=== PATIENT | male | born 1975 | race Two or more races ===

== ENCOUNTER 2023-08-10 23:30 | Emergency (ER) | payer OTHER, SELFPAY ==
--- NOTE | ~2023-08-10 | XR_ITS ---
EXAMINATION: XR LUMBOSACRAL SPINE CLINICAL INFORMATION: Injury. COMPARISON: None available. TECHNIQUE: Three views of the lumbosacral spine. FINDINGS: No acute compression deformity or subluxation. Mild intervertebral disc height loss and facet arthropathy at L5-S1. Symmetric SI joints. No significant paraspinal soft tissue abnormality. Nonspecific deformity at the level of the lower sacrum. XR/XR lumbar spine 2-3V IMPRESSION: 1. No significant radiographic abnormality of the lumbar spine. 2. Nonspecific mild deformity of the lower sacrum, uncertain if this represents sequela of an injury versus anatomic variation. Recommend correlation with point tenderness and if indicated further evaluation with CT of the pelvis without IV contrast.
[2023-08-10 23:34] VITALS: BP 142/97; PULSE 98; RESP 18; TEMP 36.6; O2SAT 99; BMI 29.0
[2023-08-11 05:41] VITALS: BP 119/74; PULSE 90; RESP 17; TEMP 36.4; O2SAT 95
[2023-08-11 07:09] VITALS: BP 116/77; PULSE 77; RESP 16; TEMP 36.8; O2SAT 96
--- NOTE | 2023-08-11 07:09 | ED.BACK ---
HPI - Back Pain/Injury General Chief Complaint: Back Pain/Injury Stated Complaint: Back pain Time Seen by Provider: 08/11/23 07:08 Source: patient Mode of arrival: ambulatory Limitations: no limitations History of Present Illness HPI Narrative: Patient lifted 50lbs bag of chemicals and felt his back pop. Pain into his left buttock into his thigh MD elicited complaint: back pain and back injury Onset (ago): hour(s) Severity: mild Similar Symptoms Previously: Yes Location: lumbar spine Related Data Previous Rx's Medication Instructions Recorded cyclobenzaprine 10 mg tablet 10 mg PO TID #10 tabs 08/11/23 naproxen 500 mg tablet (Naprosyn) 500 mg PO BID #20 tabs 08/11/23 Allergies Allergy/AdvReac Type Severity Reaction Status Date / Time No Known Allergies Allergy Verified 08/10/23 23:33 Review of Systems Review of Systems: Yes all other systems are reviewed and are negative Neurologic: Denies Sensory deficit (Neuro) Physical Exam Vital Signs: Vital Signs: Last Vital Signs Temp 98.3 F 08/11/23 07:09 Pulse 77 08/11/23 07:09 Resp 16 08/11/23 07:09 BP 116/77 08/11/23 07:09 Pulse Ox 96 08/11/23 07:09 O2 Del Method Room Air 08/11/23 07:09 BMI result Body Mass Index 29.0 Const: General: healthy appearing Nutritional Appearance: average body habitus Orientation/consciousness: oriented to person and patient oriented x3 Limitations: no limitations HEENT: Head: Yes normal to inspection Ears: external ears normal General nose exam: Normal external nose present Mouth: Normal oral and palatal mucosa present and oropharynx normal Throat: Yes posterior oropharynx normal Eyes: General: appearance normal, both eyes and all related structures Neck: Other: supple Neck: Yes normal visual inspection Chest: Chest palpation & inspection: normal inspection of the chest Resp: Auscultation: clear to auscultation bilaterally Cardio: Jugular venous distension: no JVD Rate: regular rate Rhythm: regular rhythm Heart sounds: S1 normal heart sound present and S2 normal heart sound present GI: Inspection: Yes normal to inspection Palpation (GI): Soft to palpation, nontender and No hepatosplenomegaly present Auscultation: normal bowel sounds Back/Spine/Pelvis: Other: left SI pain, left sciatic notch pain Skin: General skin exam: no rashes or lesions noted Neuro: General: oriented to person and patient oriented x3 Cranial nerves: Yes CN's II-XII intact bilaterally Motor exam (neuro): 5/5 motor strength present throughout Sensory Exam: No Sensory deficit (Neuro) Extrem: General: Yes normal to inspection Psych: Appearance: grossly normal Course Reevaluation(s) Reevaluation #1: will medicate with toradol and flexeril and dc home Time: 07:17 Medical Decision Making Differential Diagnosis Differential Diagnoses: The differential diagnosis associated with the presentation includes (sciatica, SI joint pain, herniated disk were all considered) Independent Interpretation I performed an independent interpretation of an: Plain X-Ray (lumbar: slight djd) Radiology Impression Discussion of test interpretation with radiology: I have reviewed the radiologist's reading. Tests considered The following testing was considered but not selected: MRI of spine considered but no neurologic deficits Prescription Management I considered prescription management with: Pain Medication (at this time no narcotic pain medication needed) Discharge Plan Discharge Clinical Impression: Strain of lumbar region, Lumbar radiculopathy, Sciatica Patient Disposition: Home, Self-Care Instructions: Sciatica (ED), Acute Low Back Pain (ED) Prescriptions: New cyclobenzaprine 10 mg tablet 10 mg PO TID Qty: 10 0RF naproxen [Naprosyn] 500 mg tablet 500 mg PO BID Qty: 20 0RF Referrals: Physician,Unknown J [Primary Care Provider] - 3 days Stand Alone Forms: Work/School Release
[2023-08-11] MEDS: Ketorolac Tromethamine 60 MG/2 ML VIAL IM (07:30)
[2023-08-11] MEDS: Cyclobenzaprine HCl 10 MG TABLET PO (07:30)
--- NOTE | 2023-08-11 07:35 | PC.NURSE ---
medication administered per provider order. pt provided w/ discharge instructions. pt leaving facility at this time.
[2023-08-11 07:39] VITALS: BP 116/77; PULSE 77; RESP 16; TEMP 36.8; O2SAT 96
== END 2023-08-11 07:39 | disposition home or self-care (01) ==
PROVIDERS: Emergency Provider Emergency Medicine
DX: S39.012A Strain of muscle, fascia and tendon of lower back, initial encounter (principal); M54.42 Lumbago with sciatica, left side; M54.16 Radiculopathy, lumbar region; X50.0XXA Overexertion from strenuous movement or load, initial encounter; Y93.9 Activity, unspecified; Y92.9 Unspecified place or not applicable; Y99.8 Other external cause status
CPT/HCPCS: 72100; 96372; 99284; J1885